=== PATIENT | female | born 1995 | race Caucasian/White ===

== ENCOUNTER 2021-02-05 14:28 | Outpatient (CLI) | payer SELFPAY | END 2021-02-05 18:50 | disposition home or self-care (01) | LOC: GENOP 14:28 | DX: O30.043 Twin pregnancy, dichorionic/diamniotic, third trimester (principal); Z3A.33 33 weeks gestation of pregnancy; O99.013 Anemia complicating pregnancy, third trimester; D64.9 Anemia, unspecified | CPT/HCPCS: 81001; 96360; 96374; J1200; J7120 ==